=== PATIENT | female | born 1955 | race American Indian/Alaskan Native ===

== ENCOUNTER 2018-10-18 02:55 | Emergency (ER) | payer OTHER ==
[~2018-10-18] VITALS: Ht 160 cm; Wt 69.1 kg
[~2018-10-18 02:55] MED LIST: ALIGN4 MG PO; ATIVAN0.5 MG PO; CIPROFLOXACIN500 M3 PO; FLAGYL500 MG PO; MULTI-VITAMIN1 EAC5 PO; NORCO 5-325 TA1 EACH PO; PRILOSEC 20 MG20 MG PO; PROTONIX40 M1 PO; PYRIDIUM100 MG PO; TRAMADOL 50 MG50 MG PO; ZOFRAN ODT4 MG PO
[2018-10-18] MEDS ORDERED: ULTRAM 50MG TAB50 MG PO (04:08)
[2018-10-18] MEDS ORDERED: AUGMENTIN 875-1 EACH PO (04:08)
[2018-10-18 05:46] VITALS: BP 128/67
== END 2018-10-18 05:55 | disposition home or self-care (01) ==
LOC: ER 02:55
DX: S41.031A Puncture wound without foreign body of right shoulder, initial encounter (principal); S71.132A Puncture wound without foreign body, left thigh, initial encounter; S71.131A Puncture wound without foreign body, right thigh, initial encounter; Z88.2 Allergy status to sulfonamides; Z90.89 Acquired absence of other organs; Z90.721 Acquired absence of ovaries, unilateral; Z90.49 Acquired absence of other specified parts of digestive tract; Z90.710 Acquired absence of both cervix and uterus; W54.0XXA Bitten by dog, initial encounter; Y92.89 Other specified places as the place of occurrence of the external cause; Y93.89 Activity, other specified; Y99.8 Other external cause status